=== PATIENT | male | born 2000 | race Caucasian/White ===

== ENCOUNTER 2020-08-13 15:43 | Emergency (ER) | payer BC ==
[~2020-08-13] VITALS: Ht 180.3 cm; Wt 77.1 kg
[2020-08-13] MEDS ORDERED: IBUPROFEN 600 MG TABLET PO ONE (16:00)
[2020-08-13] MEDS ORDERED: ACETAMINOPHEN 325 MG TABLET PO ONE (16:00)
[2020-08-13] MEDS ORDERED: IBUPROFEN 600 MG TABLET ONE (16:06)
[2020-08-13] MEDS ORDERED: ACETAMINOPHEN 325 MG TABLET ONE (16:06)
[2020-08-13] MEDS ORDERED: LORAZEPAM 2 MG/1 ML VIAL IM ONE (17:00)
[2020-08-13] MEDS ORDERED: MORPHINE SULFATE 4 MG/1 ML DISP.SYRIN IM ONE (17:00)
[2020-08-13] MEDS ORDERED: LIDOCAINE HCL 2% 20 ML VIAL IJ ONE (17:00)
[2020-08-13] MEDS ORDERED: MORPHINE SULFATE 4 MG/1 ML DISP.SYRIN ONE (17:05)
[2020-08-13] MEDS ORDERED: LORAZEPAM 2 MG/1 ML VIAL ONE (17:06)
[2020-08-13] MEDS ORDERED: LIDOCAINE HCL 2% 20 ML VIAL ONE (17:07)
--- NOTE | 2020-08-13 18:11 | NUR ---
Patient discharged to home in stable condition. Written and verbal after care instructions given. Patient verbalizes understanding of instructions. Stressed follow up or return to ER for worsening s/s.
== END 2020-08-13 18:14 | disposition home or self-care (01) ==
LOC: ER 15:43
DX: S52.572A Other intraarticular fracture of lower end of left radius, initial encounter for closed fracture (principal); S52.612A Displaced fracture of left ulna styloid process, initial encounter for closed fracture; W17.89XA Other fall from one level to another, initial encounter; Y93.51 Activity, roller skating (inline) and skateboarding; Y92.89 Other specified places as the place of occurrence of the external cause
CPT/HCPCS: 25605; 73070; 73100; 73110; 73130; 99284; J3490; A4663; J2060; J2270